=== PATIENT | male | born 1960 | race Caucasian/White ===

== ENCOUNTER 2016-04-27 08:40 | Outpatient (RCR) | payer BC, OTHER ==
--- NOTE | 2016-04-24 19:14 | Diagnostic Imaging Report ---
EXAMINATION: KUB. INDICATION: Followup stones. COMPARISON: 05/03/15. FINDINGS: There are surgical sutures and radiopaque markers of mesh placement in the pelvis and left groin region. There is a faint density, measuring 4 mm, projecting over the left flank which could be related to a kidney stone. No definite other urinary tract stone is seen. IMPRESSION: 4 mm left flank density may relate to a kidney stone. Dictated by: Dictated on workstation # [id number]
[~2016-04-27 08:40] MED LIST: ASP81CT PO; CLCX200C PO; CYAN100021 PO; HYDR-3731 PO; HYDR1TAB66 PO; KRIL1CAP2 PO; LEVO250T11 PO; LEVO500T69 PO; LORA1TAB PO; METR500T PO; OMEP40CA36 PO; OXYC-12 PO; PHEN-640 PO; TAMS0.4C98 PO
[2016-05-02 18:39] LABS: STONE RISK AMMONIUM 26 mEq/24hr (14-62); STONE RISK BRUSHITE 6.13 (< 2.00); STONE RISK CALCIUM 634 mg/day (< 250); STONE RISK CITRATE 578 mg/day (> 320); STONE RISK CREATININE 2319 mg/day (800-2000); STONE RISK MAGNESIUM 207 mg/day (> 60); STONE RISK OXALATE 51 mg/day (< 45); STONE RISK PH 6.7 (5.5-7.0); STONE RISK PHOSPHOROUS 1391 mg/day (< 1100); STONE RISK POTASSIUM 96 mEq/24hr (19-135); STONE RISK SODIUM 234 mEq/24hr (< 200); STONE RISK SODIUM URATES 1.69 (< 2.00); STONE RISK STRUVITE 3.13 (< 75.00); STONE RISK SULFITE 21 mmol/day (< 30); STONE RISK TOTAL VOLUME 3.14 L/day (> 2.00); STONE RISK URIC ACID 842 mg/day (< 700); STONE RISK URIC ACID SAT 0.26 (< 2.00)
== END 2016-04-28 12:00 | disposition home or self-care (01) ==
LOC: RAD 08:40
PROVIDERS: ATTEND Urology
DX: N20.9 Urinary calculus, unspecified (principal)
CPT/HCPCS: 74000; 82140; 82340; 82507; 82570; 83735; 83945; 83986; 84105; 84133; 84300; 84392; 84560